=== PATIENT | female | born 1990 | race Caucasian/White ===

== ENCOUNTER 2021-03-04 20:08 | Emergency (ER) | payer OTHER ==
[~2021-03-04] VITALS: Ht 180.3 cm; Wt 106.6 kg
[~2021-03-04 20:08] MED LIST: NOHOMEMEDICATIONS
[2021-03-04 21:15] LABS: MAGNESIUM 2.1 mg/dL (1.8-2.4); POTASSIUM 3.4 mmol/L (3.5-5.1)
[2021-03-04] MEDS ORDERED: BUSPAR30 MG PO ×2 (21:22→21:23)
[2021-03-04] MEDS ORDERED: TRAZODONE HCL100 MG PO (21:24)
[2021-03-04] MEDS ORDERED: INDERAL LA120 M1 PO (21:24)
[2021-03-04] MEDS ORDERED: RIZATRIPTAN5 MG PO (21:25)
[2021-03-04 23:03] LABS: URINE BILIRUBIN NEGATIVE (Negative); URINE BLOOD NEGATIVE (Negative); URINE CLARITY CLEAR; URINE COLOR YELLOW; URINE GLUCOSE-RANDOM* NEGATIVE (Negative); URINE KETONES TRACE (Negative); URINE LEUKOCYTES-REFLEX NEGATIVE (Negative); URINE NITRITE-REFLEX NEGATIVE (Negative); URINE PROTEIN (DIPSTICK) NEGATIVE (Negative); URINE SPECIFIC GRAVITY 1.025 (1.005-1.035); URINE UROBILINOGEN 0.2 E.U./dl (0.2-1.0)
[2021-03-04] MEDS ORDERED: ONDANSETRON HCL4 M2 PO (23:08)
[2021-03-04] MEDS ORDERED: BUTALB-APAP-CA1 EACH PO (23:08)
[2021-03-04 23:17] VITALS: BP 156/90
--- NOTE | 2021-03-05 08:44 | EKG ---
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
== END 2021-03-04 23:25 | disposition home or self-care (01) ==
LOC: ER 20:08
PROVIDERS: Nurse Practitioner
DX: G43.909 Migraine, unspecified, not intractable, without status migrainosus (principal); Z79.899 Other long term (current) drug therapy; Z88.0 Allergy status to penicillin; Z88.8 Allergy status to other drugs, medicaments and biological substances; Z88.2 Allergy status to sulfonamides